=== PATIENT | female | born 1980 | race African-American/Black ===

== ENCOUNTER 2019-04-12 21:19 | Emergency (ER) | payer BC, OTHER ==
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
[2019-04-12 22:00] VITALS: TEMP 97.8; BMI 30.4
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
[2019-04-13] MEDS ORDERED: IBUPROFEN 600 MG TABLET (FP) PO ONE ×2 (02:48→02:50)
[2019-04-13 02:54] VITALS: BP 125/87; PULSE 70
== END 2019-04-13 03:29 | disposition home or self-care (01) ==
LOC: JER 21:19
DX: S09.90XA Unspecified injury of head, initial encounter (principal); V44.5XXA Car driver injured in collision with heavy transport vehicle or bus in traffic accident, initial encounter; Y93.89 Activity, other specified; Y92.410 Unspecified street and highway as the place of occurrence of the external cause
CPT/HCPCS: 70450-TC; 73110-TC-RT-FY; 99282-25